=== PATIENT | female | born 1935 | race Caucasian/White ===

== ENCOUNTER 2017-05-20 14:35 | Inpatient (IN) | payer MEDICARE ==
[~2017-05-20] VITALS: Ht 162.6 cm; Wt 86.0 kg
[~2017-05-20 14:35] MED LIST: CEFD300C37 PO; LEVO100T PO; LEVO88TA4 PO; LITH300T3 PO; RIVA20TA PO; ZOLP-413 PO; thyroid
[2017-05-20 15:26] LABS: BLOOD UREA NITROGEN 8 mg/dL (7-18)
[2017-05-20 15:30] LABS: ASPARTATE AMINO TRANSFERASE 34 U/L (15-37)
[2017-05-20 16:10] LABS: PATH.CAST-FLAG NOT PRESENT; SPERM-FLAG NOT PRESENT; SRC-FLAG NOT PRESENT; XTAL-FLAG NOT PRESENT; YLC-FLAG NOT PRESENT
[2017-05-20] MEDS ORDERED: POLYETHYLENE GLYCOL 17 GM PACKET PO PRN (17:30)
[2017-05-20] MEDS ORDERED: BISACODYL 10 MG SUPP PR PRN (17:30)
[2017-05-20] MEDS ORDERED: SODIUM CHLORIDE FLUSH 10ML SYR IVF PRN (18:00)
[2017-05-20] MEDS ORDERED: ONDANSETRON ODT 4 MG PO PRN (19:00)
[2017-05-20] MEDS: ENOXAPARIN 40 MG/0.4 ML SQ SCH (21:12)
[2017-05-20 21:59] VITALS: BP 142/52
[2017-05-20 22:00] VITALS: BP 142/52
[2017-05-21] VITALS (11 sets, daily range): BP systolic 98–155; BP diastolic 59–78
[2017-05-21] MEDS: ZOLPIDEM 5MG TABLET PO PRN (01:53)
[2017-05-21] MEDS ORDERED: ASPIRIN 325 MG TABLET PO SCH (06:00)
[2017-05-21] MEDS ORDERED: LEVOTHYROXINE 100 MCG TABLET PO SCH (06:00)
[2017-05-21] MEDS: LITHIUM CARBONATE 300 MG CAPSULE PO SCH (10:09)
[2017-05-21] MEDS: ENOXAPARIN 40 MG/0.4 ML SQ SCH (21:00)
[2017-05-22 01:51] VITALS: BP 147/85
[2017-05-22] MEDS: ASPIRIN 81 MG TABLET CHEW PO SCH (06:14)
[2017-05-22] MEDS: LEVOTHYROXINE 125 MCG TABLET PO SCH (06:15)
[2017-05-22 06:35] VITALS: BP 127/57
[2017-05-22] MEDS: LITHIUM CARBONATE 300 MG CAPSULE PO SCH (08:59)
[2017-05-22 12:00] VITALS: BP 144/56
[2017-05-22] MEDS ORDERED: ONDANSETRON ODT 4 MG PO PRN (14:00)
[2017-05-22] MEDS: ENOXAPARIN 40 MG/0.4 ML SQ SCH (17:30)
[2017-05-22 20:13] VITALS: BP 87/40
[2017-05-22 20:18] VITALS: BP 138/88
[2017-05-22] MEDS: ZOLPIDEM 5MG TABLET PO PRN (23:05)
[2017-05-23 02:40] VITALS: BP 158/82
[2017-05-23] MEDS: ASPIRIN 81 MG TABLET CHEW PO SCH (05:10)
[2017-05-23] MEDS: LEVOTHYROXINE 125 MCG TABLET PO SCH (05:10)
[2017-05-23 08:00] VITALS: BP 117/61
[2017-05-23] MEDS: LITHIUM CARBONATE 300 MG CAPSULE PO SCH (09:37)
[2017-05-23] MEDS: ENOXAPARIN 40 MG/0.4 ML SQ SCH (16:45)
[2017-05-23 20:08] VITALS: BP 127/79
[2017-05-23] MEDS: ZOLPIDEM 5MG TABLET PO PRN (21:46)
[2017-05-24 01:49] VITALS: BP 138/67
[2017-05-24] MEDS: ASPIRIN 81 MG TABLET CHEW PO SCH (04:16)
[2017-05-24] MEDS: ACETAMINOPHEN 325 MG TABLET PO PRN ×3 (04:16→20:30)
[2017-05-24] MEDS: LEVOTHYROXINE 125 MCG TABLET PO SCH (04:16)
[2017-05-24 08:02] VITALS: BP 134/75
[2017-05-24] MEDS: LITHIUM CARBONATE 300 MG CAPSULE PO SCH (08:48)
[2017-05-24] MEDS: DOCUSATE 100 MG CAPSULE PO PRN ×2 (13:14→20:30)
[2017-05-24 15:38] VITALS: BP 117/78
[2017-05-24] MEDS: ENOXAPARIN 40 MG/0.4 ML SQ SCH (17:30)
[2017-05-24 20:04] VITALS: BP 121/72
[2017-05-24] MEDS: ZOLPIDEM 5MG TABLET PO PRN (20:30)
[2017-05-25 00:31] VITALS: BP 142/83
[2017-05-25] MEDS: ACETAMINOPHEN 325 MG TABLET PO PRN (01:18)
[2017-05-25] MEDS: LEVOTHYROXINE 125 MCG TABLET PO SCH (05:51)
[2017-05-25] MEDS: ASPIRIN 81 MG TABLET CHEW PO SCH (05:51)
[2017-05-25 06:51] VITALS: BP 99/65
[2017-05-25] MEDS: LITHIUM CARBONATE 300 MG CAPSULE PO SCH (08:40)
[2017-05-25 12:51] VITALS: BP 111/74
[2017-05-25] MEDS: DOCUSATE 100 MG CAPSULE PO PRN (14:35)
[2017-05-25] MEDS: POLYETHYLENE GLYCOL 17 GM PACKET PO PRN (14:35)
[2017-05-25] MEDS: ENOXAPARIN 40 MG/0.4 ML SQ SCH (17:30)
[2017-05-25 20:00] VITALS: BP 131/71
[2017-05-25] MEDS: ZOLPIDEM 5MG TABLET PO PRN (23:10)
[2017-05-26 02:00] VITALS: BP 148/77
[2017-05-26] MEDS: LEVOTHYROXINE 125 MCG TABLET PO SCH (05:53)
[2017-05-26] MEDS: POLYETHYLENE GLYCOL 17 GM PACKET PO PRN (05:53)
[2017-05-26] MEDS: ASPIRIN 81 MG TABLET CHEW PO SCH (05:53)
[2017-05-26 08:59] VITALS: BP 126/85
[2017-05-26] MEDS: LITHIUM CARBONATE 300 MG CAPSULE PO SCH (09:27)
[2017-05-26] MEDS: ACETAMINOPHEN 325 MG TABLET PO PRN ×2 (09:55→17:14)
[2017-05-26] MEDS: TAMSULOSIN 0.4 MG CAP.ER.24H PO SCH (11:54)
[2017-05-26 16:36] VITALS: BP 125/73
[2017-05-26] MEDS: ENOXAPARIN 40 MG/0.4 ML SQ SCH (17:15)
[2017-05-26 20:00] VITALS: BP 99/63
[2017-05-26] MEDS: ZOLPIDEM 5MG TABLET PO PRN (23:32)
[2017-05-27 02:48] VITALS: BP 127/78
[2017-05-27] MEDS: ASPIRIN 81 MG TABLET CHEW PO SCH (05:35)
[2017-05-27] MEDS: LEVOTHYROXINE 125 MCG TABLET PO SCH (05:36)
[2017-05-27 07:50] VITALS: BP 129/60
[2017-05-27] MEDS: TAMSULOSIN 0.4 MG CAP.ER.24H PO SCH (08:27)
[2017-05-27] MEDS: LITHIUM CARBONATE 300 MG CAPSULE PO SCH (08:27)
[2017-05-27] MEDS: DOCUSATE 100 MG CAPSULE PO PRN (08:30)
[2017-05-27] MEDS: POLYETHYLENE GLYCOL 17 GM PACKET PO PRN (08:30)
[2017-05-27 14:53] VITALS: BP 114/72
[2017-05-27] MEDS: ENOXAPARIN 40 MG/0.4 ML SQ SCH (17:30)
[2017-05-27 20:00] VITALS: BP 118/78
[2017-05-28] MEDS: ZOLPIDEM 5MG TABLET PO PRN (00:24)
[2017-05-28 02:00] VITALS: BP 118/72
[2017-05-28] MEDS: LEVOTHYROXINE 125 MCG TABLET PO SCH (05:48)
[2017-05-28] MEDS: ASPIRIN 81 MG TABLET CHEW PO SCH (05:48)
[2017-05-28 06:59] VITALS: BP 119/82
[2017-05-28] MEDS: TAMSULOSIN 0.4 MG CAP.ER.24H PO SCH (09:46)
[2017-05-28] MEDS: LITHIUM CARBONATE 300 MG CAPSULE PO SCH (09:46)
[2017-05-28] MEDS ORDERED: MAGNESIUM CITRATE 300ML ORAL SOL PO ONE (11:00)
[2017-05-28 13:44] VITALS: BP 128/57
[2017-05-28] MEDS: CEFDINIR 300 MG CAPSULE PO SCH ×2 (14:01→20:24)
[2017-05-28] MEDS: ENOXAPARIN 40 MG/0.4 ML SQ SCH (16:32)
[2017-05-28 19:13] VITALS: BP 90/58
[2017-05-28] MEDS: ACETAMINOPHEN 325 MG TABLET PO PRN (19:26)
[2017-05-29] MEDS: ZOLPIDEM 5MG TABLET PO PRN ×2 (00:27→22:36)
[2017-05-29 02:11] VITALS: BP 133/77
[2017-05-29] MEDS: ASPIRIN 81 MG TABLET CHEW PO SCH (06:07)
[2017-05-29] MEDS: LEVOTHYROXINE 125 MCG TABLET PO SCH (06:07)
[2017-05-29] MEDS: CEFDINIR 300 MG CAPSULE PO SCH ×2 (08:42→22:36)
[2017-05-29] MEDS: TAMSULOSIN 0.4 MG CAP.ER.24H PO SCH (08:42)
[2017-05-29] MEDS: LITHIUM CARBONATE 300 MG CAPSULE PO SCH (08:42)
[2017-05-29 08:56] VITALS: BP 117/75
[2017-05-29 13:45] VITALS: BP 115/66
[2017-05-29] MEDS: ENOXAPARIN 40 MG/0.4 ML SQ SCH (17:30)
[2017-05-29 18:52] VITALS: BP 108/69
[2017-05-30 01:09] VITALS: BP 119/76
[2017-05-30 05:33] LABS: BLOOD UREA NITROGEN 15 mg/dL (7-18)
[2017-05-30] MEDS: ASPIRIN 81 MG TABLET CHEW PO SCH (05:43)
[2017-05-30] MEDS: LEVOTHYROXINE 125 MCG TABLET PO SCH (05:43)
[2017-05-30 06:50] VITALS: BP 109/74
[2017-05-30] MEDS: CEFDINIR 300 MG CAPSULE PO SCH ×2 (08:57→21:02)
[2017-05-30] MEDS: LITHIUM CARBONATE 300 MG CAPSULE PO SCH (08:57)
[2017-05-30] MEDS: TAMSULOSIN 0.4 MG CAP.ER.24H PO SCH (08:57)
[2017-05-30 13:01] VITALS: BP 134/75
[2017-05-30] MEDS: ENOXAPARIN 40 MG/0.4 ML SQ SCH (17:30)
[2017-05-30 18:29] VITALS: BP 113/70
[2017-05-30] MEDS: ZOLPIDEM 5MG TABLET PO PRN (22:53)
[2017-05-31 01:10] VITALS: BP 138/72
[2017-05-31] MEDS: ASPIRIN 81 MG TABLET CHEW PO SCH (06:26)
[2017-05-31] MEDS: LEVOTHYROXINE 125 MCG TABLET PO SCH (06:26)
[2017-05-31 08:01] VITALS: BP 142/81
[2017-05-31] MEDS: TAMSULOSIN 0.4 MG CAP.ER.24H PO SCH (09:00)
[2017-05-31] MEDS: LITHIUM CARBONATE 300 MG CAPSULE PO SCH (10:05)
[2017-05-31] MEDS: CEFDINIR 300 MG CAPSULE PO SCH ×2 (10:05→20:12)
[2017-05-31] MEDS: ACETAMINOPHEN 325 MG TABLET PO PRN ×2 (11:48→20:23)
[2017-05-31 13:49] VITALS: BP 120/73
[2017-05-31] MEDS: DOCUSATE 100 MG CAPSULE PO PRN (17:20)
[2017-05-31] MEDS: ENOXAPARIN 40 MG/0.4 ML SQ SCH (17:20)
[2017-05-31 19:05] VITALS: BP 122/67
[2017-06-01 02:12] VITALS: BP 95/65
[2017-06-01] MEDS: ASPIRIN 81 MG TABLET CHEW PO SCH (05:53)
[2017-06-01] MEDS: LEVOTHYROXINE 125 MCG TABLET PO SCH (05:53)
[2017-06-01 06:50] VITALS: BP 107/66
[2017-06-01] MEDS: CEFDINIR 300 MG CAPSULE PO SCH ×2 (09:57→20:38)
[2017-06-01] MEDS: LITHIUM CARBONATE 300 MG CAPSULE PO SCH (09:57)
[2017-06-01] MEDS: TAMSULOSIN 0.4 MG CAP.ER.24H PO SCH (09:57)
[2017-06-01] MEDS: ACETAMINOPHEN 325 MG TABLET PO PRN (12:47)
[2017-06-01 13:48] VITALS: BP 101/66
[2017-06-01] MEDS: ENOXAPARIN 40 MG/0.4 ML SQ SCH (17:30)
[2017-06-01 19:02] VITALS: BP 106/53
[2017-06-01] MEDS: ZOLPIDEM 5MG TABLET PO PRN (21:57)
[2017-06-02 02:49] VITALS: BP 145/76
[2017-06-02] MEDS: ASPIRIN 81 MG TABLET CHEW PO SCH (06:37)
[2017-06-02] MEDS: LEVOTHYROXINE 125 MCG TABLET PO SCH (06:37)
[2017-06-02 07:17] VITALS: BP 108/45
[2017-06-02] MEDS: TAMSULOSIN 0.4 MG CAP.ER.24H PO SCH (08:48)
[2017-06-02] MEDS: CEFDINIR 300 MG CAPSULE PO SCH (08:48)
[2017-06-02] MEDS: LITHIUM CARBONATE 300 MG CAPSULE PO SCH (08:48)
[2017-06-02] MEDS: ACETAMINOPHEN 325 MG TABLET PO PRN ×3 (09:29→21:24)
[2017-06-02 12:32] VITALS: BP 128/69
[2017-06-02] MEDS: ENOXAPARIN 40 MG/0.4 ML SQ SCH (17:30)
[2017-06-02 19:28] VITALS: BP 124/71
[2017-06-02] MEDS: ZOLPIDEM 5MG TABLET PO PRN (22:56)
[2017-06-03 01:53] VITALS: BP 134/81
[2017-06-03] MEDS: LEVOTHYROXINE 125 MCG TABLET PO SCH (05:50)
[2017-06-03] MEDS: ASPIRIN 81 MG TABLET CHEW PO SCH (05:50)
[2017-06-03 07:09] VITALS: BP 120/63
[2017-06-03] MEDS: LITHIUM CARBONATE 300 MG CAPSULE PO SCH (08:02)
[2017-06-03] MEDS: TAMSULOSIN 0.4 MG CAP.ER.24H PO SCH (08:02)
[2017-06-03] MEDS: ACETAMINOPHEN 325 MG TABLET PO PRN ×2 (12:22→19:19)
[2017-06-03 13:18] VITALS: BP 145/70
[2017-06-03] MEDS: ENOXAPARIN 40 MG/0.4 ML SQ SCH (16:37)
[2017-06-03 19:35] VITALS: BP 95/57
[2017-06-03] MEDS: ZOLPIDEM 5MG TABLET PO PRN (22:36)
[2017-06-04 01:12] VITALS: BP 110/69
[2017-06-04 05:48] LABS: BLOOD UREA NITROGEN 14 mg/dL (7-18)
[2017-06-04] MEDS: ASPIRIN 81 MG TABLET CHEW PO SCH (06:16)
[2017-06-04] MEDS: LEVOTHYROXINE 125 MCG TABLET PO SCH (06:17)
[2017-06-04 07:13] VITALS: BP 106/46
[2017-06-04] MEDS: LITHIUM CARBONATE 300 MG CAPSULE PO SCH (08:42)
[2017-06-04] MEDS: TAMSULOSIN 0.4 MG CAP.ER.24H PO SCH (08:42)
[2017-06-04 12:20] VITALS: BP 100/61
[2017-06-04] MEDS: ENOXAPARIN 40 MG/0.4 ML SQ SCH (17:30)
[2017-06-04 19:15] VITALS: BP 93/61
[2017-06-04] MEDS ORDERED: CALCIUM CARBONATE 500 MG TAB.CHEW PO PRN (21:00)
[2017-06-04] MEDS: ZOLPIDEM 5MG TABLET PO PRN (23:04)
[2017-06-05 00:44] VITALS: BP 121/78
[2017-06-05] MEDS: LEVOTHYROXINE 125 MCG TABLET PO SCH (05:54)
[2017-06-05] MEDS: ASPIRIN 81 MG TABLET CHEW PO SCH (05:54)
[2017-06-05 06:17] LABS: BLOOD UREA NITROGEN 16 mg/dL (7-18)
[2017-06-05 07:42] VITALS: BP 99/61
[2017-06-05] MEDS: LITHIUM CARBONATE 300 MG CAPSULE PO SCH (11:03)
[2017-06-05] MEDS: TAMSULOSIN 0.4 MG CAP.ER.24H PO SCH (11:03)
[2017-06-05 13:57] VITALS: BP 111/65
[2017-06-05] MEDS: ENOXAPARIN 40 MG/0.4 ML SQ SCH (17:38)
[2017-06-05] MEDS ORDERED: BISACODYL 10 MG SUPP PR PRN (19:30)
[2017-06-05] MEDS ORDERED: DOCUSATE 100 MG CAPSULE PO PRN (19:30)
[2017-06-05] MEDS ORDERED: POLYETHYLENE GLYCOL 17 GM PACKET PO PRN (19:30)
[2017-06-05 19:48] VITALS: BP 126/77
[2017-06-06 01:38] VITALS: BP 137/67
[2017-06-06] MEDS: ZOLPIDEM 5MG TABLET PO PRN ×2 (02:28→23:04)
[2017-06-06] MEDS: ASPIRIN 81 MG TABLET CHEW PO SCH (05:53)
[2017-06-06] MEDS: LEVOTHYROXINE 125 MCG TABLET PO SCH (05:53)
[2017-06-06 07:54] VITALS: BP 109/71
[2017-06-06] MEDS: TAMSULOSIN 0.4 MG CAP.ER.24H PO SCH (08:15)
[2017-06-06] MEDS: LITHIUM CARBONATE 300 MG CAPSULE PO SCH (08:15)
[2017-06-06 14:11] VITALS: BP 123/77
[2017-06-06 14:13] VITALS: BP 106/68
[2017-06-06] MEDS: ENOXAPARIN 40 MG/0.4 ML SQ SCH (18:16)
[2017-06-06 20:10] VITALS: BP 113/76
[2017-06-07 03:36] VITALS: BP 119/82
[2017-06-07] MEDS: LEVOTHYROXINE 125 MCG TABLET PO SCH (05:40)
[2017-06-07] MEDS: ASPIRIN 81 MG TABLET CHEW PO SCH (05:40)
[2017-06-07 08:50] VITALS: BP 98/65
[2017-06-07] MEDS: TAMSULOSIN 0.4 MG CAP.ER.24H PO SCH (09:29)
[2017-06-07] MEDS: LITHIUM CARBONATE 300 MG CAPSULE PO SCH (09:29)
[2017-06-07 14:36] VITALS: BP 95/64
[2017-06-07] MEDS: ENOXAPARIN 40 MG/0.4 ML SQ SCH (18:25)
[2017-06-07 19:45] VITALS: BP 102/68
[2017-06-08] MEDS: ZOLPIDEM 5MG TABLET PO PRN (00:28)
[2017-06-08 01:55] VITALS: BP 117/62
[2017-06-08] MEDS: LEVOTHYROXINE 125 MCG TABLET PO SCH (05:55)
[2017-06-08] MEDS: ASPIRIN 81 MG TABLET CHEW PO SCH (05:55)
[2017-06-08 07:40] VITALS: BP 139/81
[2017-06-08] MEDS: LITHIUM CARBONATE 300 MG CAPSULE PO SCH (08:23)
[2017-06-08] MEDS: TAMSULOSIN 0.4 MG CAP.ER.24H PO SCH (08:23)
== END 2017-06-08 11:25 | disposition left against medical advice (07) | DRG 309 ==
LOC: ED 17:25 → EDIP 17:26 → ED 17:44 → 3NE 19:41 → 4WST 05-21 01:05 → 4EST 05-21 05:45 → 3NE 06-01 17:01
PROVIDERS: ADMIT Internal Medicine; ATTEND Family Medicine
PROC: 0T9B70Z Drainage of Bladder with Drainage Device, Via Natural or Artificial Opening (ICD-10-PCS; principal; 2017-05-20)
PROC: 0T9B70Z Drainage of Bladder with Drainage Device, Via Natural or Artificial Opening (ICD-10-PCS; 2017-05-21)
DX: I48.0 Paroxysmal atrial fibrillation (principal); D68.69 Other thrombophilia; N39.0 Urinary tract infection, site not specified; G81.94 Hemiplegia, unspecified affecting left nondominant side; R62.7 Adult failure to thrive; Z66 Do not resuscitate; F51.04 Psychophysiologic insomnia; F31.9 Bipolar disorder, unspecified; B96.20 Unspecified Escherichia coli [E. coli] as the cause of diseases classified elsewhere; E03.9 Hypothyroidism, unspecified; M25.551 Pain in right hip; F12.90 Cannabis use, unspecified, uncomplicated; G89.29 Other chronic pain; D63.8 Anemia in other chronic diseases classified elsewhere; R19.09 Other intra-abdominal and pelvic swelling, mass and lump; K59.00 Constipation, unspecified; N31.9 Neuromuscular dysfunction of bladder, unspecified; M54.5 Low back pain; Z81.8 Family history of other mental and behavioral disorders; Z88.0 Allergy status to penicillin; Z79.82 Long term (current) use of aspirin; Z91.81 History of falling; Z99.3 Dependence on wheelchair; Z90.49 Acquired absence of other specified parts of digestive tract; Z98.51 Tubal ligation status; Z79.899 Other long term (current) drug therapy; W06.XXXA Fall from bed, initial encounter; Y92.238 Other place in hospital as the place of occurrence of the external cause; Y93.89 Activity, other specified; Y99.8 Other external cause status
CPT/HCPCS: 36415; 70450; 80048; 80053; 80178; 81001; 82565; 84439; 84443; 84481; 85014; 85018; 85025; 87077; 87086; 87186; 93005; 93308; 93321; 93325; 99285; J1650

== ENCOUNTER 2018-07-07 16:38 | Inpatient (IN) | payer MEDICARE ==
[~2018-07-07] VITALS: Ht 167.6 cm; Wt 85.9 kg
[2018-07-07] MEDS ORDERED: ACETAMINOPHEN 500 MG TABLET PO ONE (17:30)
[2018-07-07] MEDS ORDERED: ACETAMINOPHEN 500 MG TABLET ONE ×2 (17:42→18:02)
[2018-07-07 17:52] LABS: BASOPHILS # (AUTO) 0.05 x10^3/uL (0-0.1); BASOPHILS % (AUTO) 1 % (0-1); EOSINOPHILS # (AUTO) 0.65 x10^3/uL (0-0.4); EOSINOPHILS % (AUTO) 7 % (1-7); LYMPHOCYTES # (AUTO) 2.03 x10^3/uL (1-3.4); LYMPHOCYTES % (AUTO) 20 % (22-44); MD NO; MEAN CORPUSCULAR HEMOGLOBIN 31.3 pg (27.0-34.8); MEAN CORPUSCULAR HGB CONC 32.9 g/dL (32.4-35.8); MEAN CORPUSCULAR VOLUME 95.1 fL (80-100); MONOCYTES % (AUTO) 4 % (2-9); NEUTROPHILS # (AUTO) 6.89 x10^3/uL (1.8-6.8); NEUTROPHILS % (AUTO) 69 % (42-75); PLATELET COUNT 449 x10^3/uL (130-400); RED BLOOD COUNT 3.69 x10^6/uL (3.82-5.3); RED CELL DISTRIBUTION WIDTH 14.6 % (9.6-15.2)
[2018-07-07 17:57] LABS: INTERNATIONAL NORMALIZED RATIO 0.99 (0.93-1.1); PROTHROMBIN TIME 10.2 Seconds (9.6-11.5)
[2018-07-07 18:00] LABS: ALANINE AMINOTRANSFERASE 13 U/L (12-78); ALBUMIN 2.7 g/dL (3.4-5.0); ANION GAP 4 mmol/L (5-15); CHLORIDE 111 mmol/L (98-107); CREATININE 0.75 mg/dL (0.55-1.02)
[2018-07-07 18:02] LABS: ALKALINE PHOSPHATASE 160 U/L (45-117); BILIRUBIN,TOTAL 0.2 mg/dL (0.2-1.0); TOTAL PROTEIN 6.4 g/dL (6.4-8.2)
[2018-07-07] MEDS ORDERED: LITH450T PO (19:07)
[2018-07-07] MEDS ORDERED: DIAZ5TAB PO (19:07)
[2018-07-07 19:34] LABS: MICROSCOPIC INDICATED
[2018-07-07 19:36] LABS: CULTURE INDICATED? YES
[2018-07-07] MEDS ORDERED: DIAZEPAM 5 MG TABLET PO PRN (20:00)
[2018-07-07] MEDS ORDERED: CEFTRIAXONE 1,000 MG in SODIUM CHLORIDE 0.9% 50 ML IV ONE (20:00)
[2018-07-07] MEDS ORDERED: ONDANSETRON ODT 4 MG PO PRN (20:00)
[2018-07-07] MEDS ORDERED: morphine SULFATE 10 MG/ML, 1ML IVPush PRN (20:00)
[2018-07-07] MEDS ORDERED: POLYETHYLENE GLYCOL 17 GM PACKET PO PRN (20:00)
[2018-07-07] MEDS ORDERED: CEFTRIAXONE 1,000 MG in SODIUM CHLORIDE 0.9% 50 ML IV SCH (20:00)
[2018-07-07] MEDS ORDERED: ONDANSETRON 2MG/ML, 2ML IVPush PRN (20:00)
[2018-07-07] MEDS ORDERED: HYDROcodone/APAP 5/325 TABLET PO PRN (20:00)
[2018-07-07] MEDS ORDERED: KETOROLAC 30 MG/1 ML IV PRN (20:00)
[2018-07-07] MEDS: SODIUM CHLORIDE 0.9% 1,000 ML IV SCH (20:53)
[2018-07-07] MEDS: ENOXAPARIN 40 MG/0.4 ML SQ SCH (22:34)
[2018-07-08 01:11] VITALS: BP 114/74
[2018-07-08 05:58] LABS: BASOPHILS # (AUTO) 0.02 x10^3/uL (0-0.1); BASOPHILS % (AUTO) 0 % (0-1); EOSINOPHILS # (AUTO) 0.72 x10^3/uL (0-0.4); EOSINOPHILS % (AUTO) 8 % (1-7); LYMPHOCYTES # (AUTO) 2.01 x10^3/uL (1-3.4); LYMPHOCYTES % (AUTO) 24 % (22-44); MD NO; MEAN CORPUSCULAR HGB CONC 32.6 g/dL (32.4-35.8); MEAN PLATELET VOLUME 5.9 fL (7.4-10.4); MONOCYTES # (AUTO) 0.34 x10^3/uL (0.2-0.8); MONOCYTES % (AUTO) 4 % (2-9); NEUTROPHILS # (AUTO) 5.42 x10^3/uL (1.8-6.8); NEUTROPHILS % (AUTO) 64 % (42-75); PLATELET COUNT 419 x10^3/uL (130-400); RED BLOOD COUNT 3.55 x10^6/uL (3.82-5.3); RED CELL DISTRIBUTION WIDTH 14.8 % (9.6-15.2)
[2018-07-08 06:08] LABS: CHLORIDE 111 mmol/L (98-107)
[2018-07-08] MEDS: LEVOTHYROXINE 100 MCG TABLET PO SCH (06:15)
[2018-07-08] MEDS: SODIUM CHLORIDE 0.9% 1,000 ML IV SCH ×2 (06:17→17:00)
[2018-07-08 06:26] LABS: ALANINE AMINOTRANSFERASE 12 U/L (12-78); ALBUMIN 2.5 g/dL (3.4-5.0); ALKALINE PHOSPHATASE 156 U/L (45-117); ANION GAP 7 mmol/L (5-15); BILIRUBIN,TOTAL 0.2 mg/dL (0.2-1.0); CALCIUM 8.7 mg/dL (8.5-10.1); CREATININE 0.68 mg/dL (0.55-1.02); TOTAL PROTEIN 5.9 g/dL (6.4-8.2)
[2018-07-08 07:15] VITALS: BP 123/79
[2018-07-08] MEDS: ACETAMINOPHEN 325 MG TABLET PO PRN ×2 (10:20→19:20)
[2018-07-08 10:31] LABS: FOLATE LEVEL 2.6 ng/mL (3.1-17.5); PREALBUMIN 15.3 mg/dL (20.0-40.0)
[2018-07-08 13:18] VITALS: BP 99/58
[2018-07-08] MEDS: LEVOFLOXACIN/PMX 500MG/100ML 100 ML IV SCH (19:33)
[2018-07-08 19:37] VITALS: BP 144/79
[2018-07-08] MEDS: ENOXAPARIN 40 MG/0.4 ML SQ SCH (20:50)
[2018-07-09 01:35] VITALS: BP 128/55
[2018-07-09] MEDS: SODIUM CHLORIDE 0.9% 1,000 ML IV SCH ×2 (02:51→14:05)
[2018-07-09] MEDS: ACETAMINOPHEN 325 MG TABLET PO PRN (03:06)
[2018-07-09 04:49] LABS: BASOPHILS # (AUTO) 0.03 x10^3/uL (0-0.1); BASOPHILS % (AUTO) 0 % (0-1); EOSINOPHILS # (AUTO) 0.51 x10^3/uL (0-0.4); EOSINOPHILS % (AUTO) 6 % (1-7); LYMPHOCYTES # (AUTO) 2.17 x10^3/uL (1-3.4); LYMPHOCYTES % (AUTO) 26 % (22-44); MD NO; MEAN CORPUSCULAR HEMOGLOBIN 30.8 pg (27.0-34.8); MEAN CORPUSCULAR HGB CONC 32.5 g/dL (32.4-35.8); MEAN CORPUSCULAR VOLUME 94.7 fL (80-100); MEAN PLATELET VOLUME 5.9 fL (7.4-10.4); MONOCYTES # (AUTO) 0.35 x10^3/uL (0.2-0.8); MONOCYTES % (AUTO) 4 % (2-9); NEUTROPHILS # (AUTO) 5.37 x10^3/uL (1.8-6.8); NEUTROPHILS % (AUTO) 64 % (42-75); PLATELET COUNT 375 x10^3/uL (130-400); RED BLOOD COUNT 3.36 x10^6/uL (3.82-5.3); RED CELL DISTRIBUTION WIDTH 14.6 % (9.6-15.2)
[2018-07-09 05:02] LABS: ALBUMIN 2.3 g/dL (3.4-5.0); ANION GAP 5 mmol/L (5-15); CALCIUM 8.1 mg/dL (8.5-10.1); CHLORIDE 118 mmol/L (98-107)
[2018-07-09 05:03] LABS: CREATININE 0.53 mg/dL (0.55-1.02)
[2018-07-09] MEDS: LEVOTHYROXINE 100 MCG TABLET PO SCH (06:16)
[2018-07-09 07:02] VITALS: BP 118/77
[2018-07-09] MEDS: CYANOCOBALAMIN 1,000 MCG TABLET PO SCH (11:34)
[2018-07-09] MEDS: FOLIC ACID 1 MG TABLET PO SCH (11:35)
[2018-07-09] MEDS: IRON SUCROSE COMPLEX 100MG/5ML IV SCH (11:35)
[2018-07-09 12:13] VITALS: BP 107/66
[2018-07-09] MEDS: LEVOFLOXACIN/PMX 500MG/100ML 100 ML IV SCH (18:03)
[2018-07-09 18:53] VITALS: BP 128/80
[2018-07-09] MEDS: ENOXAPARIN 40 MG/0.4 ML SQ SCH (20:33)
[2018-07-10] MEDS: SODIUM CHLORIDE 0.9% 1,000 ML IV SCH ×3 (01:10→20:10)
[2018-07-10 02:00] VITALS: BP 103/66
[2018-07-10] MEDS: ACETAMINOPHEN 325 MG TABLET PO PRN ×2 (05:31→14:43)
[2018-07-10] MEDS: LEVOTHYROXINE 100 MCG TABLET PO SCH (05:31)
[2018-07-10 06:50] VITALS: BP 115/68
[2018-07-10] MEDS: IRON SUCROSE COMPLEX 100MG/5ML IV SCH (09:09)
[2018-07-10] MEDS: FOLIC ACID 1 MG TABLET PO SCH (09:09)
[2018-07-10] MEDS: CYANOCOBALAMIN 1,000 MCG TABLET PO SCH (09:09)
[2018-07-10 12:16] VITALS: BP 98/60
[2018-07-10 19:58] VITALS: BP 133/67
[2018-07-10] MEDS: ENOXAPARIN 40 MG/0.4 ML SQ SCH (20:10)
[2018-07-10] MEDS: LEVOFLOXACIN/PMX 500MG/100ML 100 ML IV SCH (20:10)
[2018-07-10] MEDS ORDERED: GABA300C10 PO (23:35)
[2018-07-11 02:06] VITALS: BP 99/61
[2018-07-11] MEDS: LEVOTHYROXINE 100 MCG TABLET PO SCH (05:35)
[2018-07-11 06:47] VITALS: BP 106/64
[2018-07-11] MEDS: CYANOCOBALAMIN 1,000 MCG TABLET PO SCH (08:49)
[2018-07-11] MEDS: IRON SUCROSE COMPLEX 100MG/5ML IV SCH (08:49)
[2018-07-11] MEDS: FOLIC ACID 1 MG TABLET PO SCH (08:49)
[2018-07-11] MEDS: SODIUM CHLORIDE 0.9% 1,000 ML IV SCH (08:49)
[2018-07-11 12:07] VITALS: BP 139/78
[2018-07-11 18:37] VITALS: BP 136/77
[2018-07-11] MEDS: LEVOFLOXACIN/PMX 500MG/100ML 100 ML IV SCH (19:48)
[2018-07-11] MEDS: ENOXAPARIN 40 MG/0.4 ML SQ SCH (19:48)
[2018-07-12 00:51] VITALS: BP 98/63
[2018-07-12] MEDS: LEVOTHYROXINE 100 MCG TABLET PO SCH (05:31)
[2018-07-12 07:40] VITALS: BP 123/75
[2018-07-12] MEDS ORDERED: LEVO250T23 PO (08:51)
[2018-07-12] MEDS ORDERED: CYAN10005 PO (08:51)
[2018-07-12] MEDS ORDERED: FOLI-17 PO (08:51)
[2018-07-12] MEDS ORDERED: FERR325T18 PO (08:51)
[2018-07-12] MEDS: FOLIC ACID 1 MG TABLET PO SCH (09:48)
[2018-07-12] MEDS: LITHIUM CARBONATE 150 MG CAPSULE PO SCH (09:48)
[2018-07-12] MEDS: IRON SUCROSE COMPLEX 100MG/5ML IV SCH (09:49)
[2018-07-12] MEDS: CYANOCOBALAMIN 1,000 MCG TABLET PO SCH (09:55)
[2018-07-12 13:22] VITALS: BP 107/66
[2018-07-12 19:08] VITALS: BP 122/65
[2018-07-12] MEDS: ENOXAPARIN 40 MG/0.4 ML SQ SCH (20:02)
[2018-07-12] MEDS: LEVOFLOXACIN/PMX 500MG/100ML 100 ML IV SCH (20:02)
[2018-07-13 00:23] VITALS: BP 150/80
[2018-07-13] MEDS: LEVOTHYROXINE 100 MCG TABLET PO SCH (05:29)
[2018-07-13 07:21] VITALS: BP 139/73
[2018-07-13 07:26] VITALS: BP 139/79
[2018-07-13] MEDS: IRON SUCROSE COMPLEX 100MG/5ML IV SCH (09:36)
[2018-07-13] MEDS: FOLIC ACID 1 MG TABLET PO SCH (09:36)
[2018-07-13] MEDS: CYANOCOBALAMIN 1,000 MCG TABLET PO SCH (09:36)
[2018-07-13] MEDS: LITHIUM CARBONATE 150 MG CAPSULE PO SCH (09:36)
[2018-07-13 12:52] VITALS: BP 106/69
[2018-07-13 18:55] VITALS: BP 97/59
[2018-07-13] MEDS: LEVOFLOXACIN/PMX 500MG/100ML 100 ML IV SCH (20:04)
[2018-07-13] MEDS: ENOXAPARIN 40 MG/0.4 ML SQ SCH (21:45)
[2018-07-13] MEDS: ACETAMINOPHEN 325 MG TABLET PO PRN (21:53)
[2018-07-14 01:10] VITALS: BP 96/50
[2018-07-14 05:38] LABS: BASOPHILS # (AUTO) 0.04 x10^3/uL (0-0.1); BASOPHILS % (AUTO) 0 % (0-1); EOSINOPHILS # (AUTO) 0.57 x10^3/uL (0-0.4); EOSINOPHILS % (AUTO) 6 % (1-7); LYMPHOCYTES # (AUTO) 2.35 x10^3/uL (1-3.4); LYMPHOCYTES % (AUTO) 26 % (22-44); MD NO; MEAN CORPUSCULAR HEMOGLOBIN 31.7 pg (27.0-34.8); MEAN CORPUSCULAR HGB CONC 32.7 g/dL (32.4-35.8); MEAN CORPUSCULAR VOLUME 96.8 fL (80-100); MONOCYTES # (AUTO) 0.34 x10^3/uL (0.2-0.8); MONOCYTES % (AUTO) 4 % (2-9); NEUTROPHILS # (AUTO) 5.74 x10^3/uL (1.8-6.8); NEUTROPHILS % (AUTO) 63 % (42-75); PLATELET COUNT 334 x10^3/uL (130-400); RED BLOOD COUNT 3.57 x10^6/uL (3.82-5.3); RED CELL DISTRIBUTION WIDTH 15.7 % (9.6-15.2)
[2018-07-14 05:47] LABS: ANION GAP 4 mmol/L (5-15); CALCIUM 8.9 mg/dL (8.5-10.1); CHLORIDE 111 mmol/L (98-107); CREATININE 0.62 mg/dL (0.55-1.02)
[2018-07-14] MEDS: LEVOTHYROXINE 100 MCG TABLET PO SCH (06:05)
[2018-07-14 07:44] VITALS: BP 102/63
[2018-07-14] MEDS: LITHIUM CARBONATE 150 MG CAPSULE PO SCH (11:38)
[2018-07-14] MEDS: FOLIC ACID 1 MG TABLET PO SCH (11:38)
[2018-07-14] MEDS: CYANOCOBALAMIN 1,000 MCG TABLET PO SCH (11:38)
[2018-07-14 14:20] VITALS: BP 150/84
== END 2018-07-14 17:15 | DRG 542 ==
LOC: ED 18:26 → EDIP 19:01 → 3NE 20:07
PROVIDERS: ADMIT Hospitalist; ATTEND Hospitalist
PROC: 0T9B70Z Drainage of Bladder with Drainage Device, Via Natural or Artificial Opening (ICD-10-PCS; principal; 2018-07-07)
DX: M84.451A Pathological fracture, right femur, initial encounter for fracture (principal); E43 Unspecified severe protein-calorie malnutrition; N39.0 Urinary tract infection, site not specified; D68.69 Other thrombophilia; B95.2 Enterococcus as the cause of diseases classified elsewhere; G89.29 Other chronic pain; E03.9 Hypothyroidism, unspecified; D50.9 Iron deficiency anemia, unspecified; E53.8 Deficiency of other specified B group vitamins; F31.9 Bipolar disorder, unspecified; I48.0 Paroxysmal atrial fibrillation; R62.7 Adult failure to thrive; Z74.01 Bed confinement status; Z99.3 Dependence on wheelchair; Z98.51 Tubal ligation status; Z88.0 Allergy status to penicillin; Z68.30 Body mass index [BMI] 30.0-30.9, adult
CPT/HCPCS: 36415; 71045; 80048; 80053; 80178; 81001; 82040; 82607; 82746; 83540; 83550; 83735; 84100; 84134; 84443; 85025; 85610; 85730; 87077; 87086; 87186; 93005; 93306; 99285; J0696; J1650; J1756; J1956; J7030